=== PATIENT | female | born 1995 | race Caucasian/White ===

== ENCOUNTER 2022-12-11 13:29 | Emergency (ER) | payer MEDICAID, SELFPAY ==
--- NOTE | ~2022-12-11 | XR_ITS ---
EXAM: XR knee RT min 4V DATE: 12/11/2022 13:54 HISTORY: POSTERIOR PAIN AND SWELLING . COMPARISON: None available. FINDINGS: Subjectively decreased mineralization. No fracture or dislocation. No lytic or blastic les ion. Joint spaces are maintained. No erosion or periosteal change. Soft tissues within normal limits. IMPRESSION: Osteopenia. Consider referral for bone density scanning. No acute osseous finding in the right knee. Reviewed, dictated and finalized at location [facility]. IMPRESSION: Osteopenia. Consider referral for bone density scanning. No acute o sseous finding in the right knee.
--- NOTE | ~2022-12-11 | US_ITS ---
EXAMINATION: US venous doppler LE RT DATE: 12/11/2022 15:17 INDICATION: Right lower limb pain. TECHNIQUE: Grayscale ultrasound images without and with compression and Doppler ultrasound images of the right lower extremity veins were obtained. COMPARISON: None. FINDINGS: The visualized portions of right common femoral vein, profunda (deep) femoral vein, femoral vein, pop liteal vein, peroneal veins, posterior tibial veins, and greater saphenous vein outflow are patent. IMPRESSION: 1. No deep venous thrombosis. Reviewed, dictated and finalized at location [facility].
[2022-12-11 13:32] VITALS: BP 112/68; PULSE 98; RESP 16; TEMP 37.2; O2SAT 100
[2022-12-11] MEDS: ACETAMINOPHEN 500 MG TABLET 1000 MG PO (14:47)
--- NOTE | 2022-12-11 15:16 | ED.LOWEXIN ---
HPI - Extremity Injury (Lower) General Chief Complaint: Extremity Injury, Lower Stated Complaint: right knee pain Time Seen by Provider: 12/11/22 13:36 Source: patient Mode of arrival: ambulatory Limitations: no limitations History of Present Illness HPI Narrative: Patient is a 27-year-old female who presents to the ED with report of right knee pain. Patient reports she injured her knee 8 to 9 months ago after a fall and twisting injury. She was evaluated for this in her hometown in [place]. She is currently here visiting. She reports having increased pain over the last couple of days. States pain is mostly inferior and to her posterior knee. She has been taking Tylenol and icing without much relief. Denies any further injury. Denies numbness or tingling. Denies any fevers. Patient does have history of right foot drop and wears a leg brace. Related Data Allergies Allergy/AdvReac Type Severity Reaction Status Date / Time No Known Allergies Allergy Verified 12/11/22 14:07 Review of Systems Review of Systems: CONSTITUTIONAL: Denies fever, chills, or sweats. CARDIOVASCULAR: Denies chest pain. RESPIRATORY: Denies dyspnea. MUSCULOSKELETAL: See HPI. NEUROLOGIC: Denies tingling, numbness, or weakness. All systems reviewed & are unremarkable except as noted in HPI and below PMFSH Surgical History Surgical History (Updated 12/11/22 @ 19:23 by Fely Lantigua PA-C) History of brain surgery benign tumor Exam Narrative: GENERAL: Well appearing, well-nourished, non-toxic, in no acute distress. HEAD: Normocephalic, atraumatic. NECK: Supple. No adenopathy, no masses. RESPIRATORY: Airway patent, respirations nonlabored. Clear to auscultation bilaterally, no rales, rhonchi, wheezing. CARDIOVASCULAR: Regular rate and rhythm without murmurs, rubs, or gallops. Pedal pulses 2+ and equal bilaterally. MUSCULOSKELETAL: Moves all extremities. No gross deformities. Essentially full range of motion of right knee. Mild limitation in flexion due to pain. Full extension. Mild tenderness along inferior joint space of right anterior knee. Tenderness to palpation throughout posterior popliteal region. No palpable Messer's cyst. SKIN: Warm, dry, normal color. No rashes. NEURO: A&O X3. Speech clear. Cranial nerves II-XII grossly intact. Steady gait. No ataxic movements. PSYCHIATRIC: Appropriate mood and affect. Normal interaction. Course Vital Signs Vital signs: Vital Signs Temperature 98.9 F 12/11/22 13:32 Pulse Rate 98 12/11/22 13:32 Respiratory Rate 16 12/11/22 13:32 Blood Pressure 112/68 12/11/22 13:32 Pulse Oximetry 100 12/11/22 13:32 Temperature 98.9 F 12/11/22 13:32 Pulse Rate 98 12/11/22 13:32 Respiratory Rate 16 12/11/22 13:32 Blood Pressure 112/68 12/11/22 13:32 Pulse Oximetry 100 12/11/22 13:32 MDM - Extremity Injury (Lower) MDM Narrative Medical decision making narrative: Patient's injury is consistent with musculoskeletal etiology. No signs of neurologic or vascular compromise on physical examination. Compartments are soft without signs of compartment syndrome. XR of right knee showing possible osteopenia, no other acute abnormalities. Venous Doppler ultrasound negative. Patient updated on these findings. No recent injury. Will provide patient with Joseph bandage for comfort and support. Patient is felt to be stable for discharge home and further outpatient management and treatment. Advised to continue Tylenol and ibuprofen. Follow-up with orthopedics. Return precautions discussed. Patient agrees w/ plan. D/C in stable condition. Medical Records Attestation: I reviewed the patient's medical records. Imaging Data Attestation: I personally reviewed and interpreted this imaging study as follows: Radiologist's impression: ITS Impressions Knee X-Ray 12/11/22 14:04 IMPRESSION: Osteopenia. Consider referral for bone density scanning. No acute osseous finding
== END 2022-12-11 15:38 | disposition home or self-care (01) ==
PROVIDERS: Emergency Provider Physician Assistant
DX: S86.911A Strain of unspecified muscle(s) and tendon(s) at lower leg level, right leg, initial encounter (principal); M21.371 Foot drop, right foot; M85.88 Other specified disorders of bone density and structure, other site; W19.XXXA Unspecified fall, initial encounter; X50.9XXA Other and unspecified overexertion or strenuous movements or postures, initial encounter
CPT/HCPCS: 73564; 93971; 99284; A9270

== ENCOUNTER 2023-01-18 15:23 | Emergency (ER) | payer SELFPAY ==
[2023-01-18 15:37] VITALS: BP 118/74; PULSE 118; RESP 16; TEMP 37; O2SAT 98
[2023-01-18 15:42] LABS: Glucose Point of Care 203 mg/dl (65-105)
[2023-01-18 16:05] VITALS: O2SAT 94
[2023-01-18 16:06] VITALS: BP 126/80; PULSE 85; RESP 16; O2SAT 97
[2023-01-18] MEDS: ONDANSETRON INJ 4 MG/2 ML VIAL IV PUSH (16:22)
[2023-01-18 16:23] VITALS: O2SAT 99
[2023-01-18] MEDS: SODIUM CHLORIDE 0.9% IV 1,000 ML 999 ML IV CONT (16:28)
[2023-01-18 16:29] LABS: Basophils Absolute Auto 0.1 K/mm3 (0.0-0.1); Basophils Percent Auto 0.9 % (0.2-1.2); Eosinophils Absolute Auto 0.1 K/mm3 (0-0.3); Eosinophils Percent Auto 1.2 % (0-4.4); Hematocrit 46.8 % (37.0-47.0); Hemoglobin 16.3 g/dL (12.0-15.0); Immature Granulocyte Absolute 0.04 K/mm3 (0.00-0.031); Immature Granulocyte Percent A 0.4 % (0-0.5); Lymphocytes Absolute Auto 2.77 K/mm3 (0.9-3.2); Lymphocytes Percent Auto 29.8 % (18.3-44.2); Mean Corpuscular HGB Conc 34.8 g/dl (32-36); Mean Corpuscular Hemoglobin 29.6 pg (26-34); Mean Corpuscular Volume 85.1 fl (80-100); Monocytes Absolute Auto 0.8 K/mm3 (0.1-0.6); Monocytes Percent Auto 8.2 % (2.6-8.5); Neutrophils Absolute Auto 5.5 K/mm3 (1.3-6.7); Neutrophils Percent Auto 59.5 % (45.5-73.1); Platelet Count Result 438 k/mm3 (150-375); Red Cell Distribution Width 12.2 % (11.5-14.5); White Blood Count 9.3 K/mm3 (4.5-10.0)
[2023-01-18 16:38] LABS: Appearance Urine Cloudy (Clear); Bacteria Urine 3+ /hpf; Bilirubin Urine Negative (Negative); Blood Urine Negative (Negative); Color Urine Dark Yellow (Yellow); Glucose Urine UA Trace mg/dL (Negative); Ketones Urine 2+ mg/dL (Negative); Leukocyte Esterase Ur 1+ LEU/UL (Negative); Need Manual Microscopic Reviewed; Nitrate Urine Negative (Negative); Protein Urine 2+ mg/dL (Negative); Specific Grav Ur 1.025 (1.001-1.035); Squamous Epithelial Cell Urine Moderate /hpf (Few); pH Urine 5.5 (5.0-9.0)
[2023-01-18 16:39] LABS: Add Urine Microscopic? YES
[2023-01-18 16:47] LABS: Lactic Acid Reflex 1.1 mmol/L (0.7-2.0)
[2023-01-18 16:47] LABS: Alanine Aminotransferase 18 U/L (6-35); Albumin Level 4.6 g/dL (3.5-5.1); Alkaline Phosphatase 85 U/L (38-126); Anion Gap 12 mmol/L (8-16); Aspartate Amino Transferase 21 U/L (14-36); Bilirubin,Total 0.5 mg/dL (0.2-1.3); Blood Urea Nitrogen 17 mg/dL (7-17); Calcium 9.4 mg/dL (8.4-10.2); Carbon Dioxide 22 mmol/L (22-30); Chloride 103 mmol/L (98-107); Estimated CRCL calculation 129 ml/min; Estimated Glomerular Filt Rate > 60; Glucose 193 mg/dL (65-110); Lipase 29 U/L (23-300); Magnesium 1.7 mg/dL (1.6-2.3); Sodium 137 mmol/L (137-145)
[2023-01-18 17:40] LABS: Glucose Point of Care 156 mg/dl (65-105)
--- NOTE | 2023-01-18 17:42 | ED.ABDPAIN ---
HPI - Abdominal Pain General Chief Complaint: Abdominal Pain Stated Complaint: vomiting, fatigue, nausea Time Seen by Provider: 01/18/23 15:29 Source: patient Mode of arrival: ambulatory Limitations: no limitations History of Present Illness HPI narrative: Patient is a 27-year-old female with a past medical history of type 1 diabetes who presents emergency department today for concerns of being in DKA. Patient states that she has had decreased appetite, nausea, abdominal cramping. She states that she just moved to the area she does not have a primary. She has still been using her insulin. She does not check her blood sugars regularly. Denies any pain with urination. She states that it is a little itchy at time. she has a hx of herpes and has antiviral medication if needed. denies chest pain, shortness of breath, dizziness, diarrhea, flank pain, headache, or any other symptoms. Related Data Allergies Allergy/AdvReac Type Severity Reaction Status Date / Time No Known Allergies Allergy Verified 12/11/22 14:07 Review of Systems Review of Systems: CONSTITUTIONAL: +decreased appetitie. Denies fever, chills, or sweats. EYES: Denies visual changes, redness, or discharge. ENT: Denies rhinorrhea, congestion, sore throat, or otalgia. CARDIOVASCULAR: Denies chest pain, palpitations, or edema. RESPIRATORY: Denies cough or dyspnea. GASTROINTESTINAL: +abdominal cramping, nausea, vomiting. denies diarrhea or constipation. GENITOURINARY: has mild itching with urination. denies hematuria. denies vaginal discharge. SKIN: Denies rash or itching. MUSCULOSKELETAL: Denies back pain, joint pain, or myalgia. NEUROLOGIC: Denies headache, numbness, or weakness. PSYCHIATRIC: Denies anxiety or depression. All systems reviewed & are unremarkable except as noted in HPI and below PMFSH Surgical History Surgical History History of brain surgery benign tumor Exam Narrative: GENERAL: Well-appearing, well-nourished, and in no acute distress. HEAD: Normocephalic, atraumatic. EYES: PERRLA and EOMI. ENT: Nares clear, no rhinorrhea or epistaxis. Mucous membranes moist. NECK: Supple. CHEST: Clear to auscultation. No respiratory distress. HEART: Regular rate and rhythm. No murmur heard. Normal peripheral pulses. ABDOMEN: Soft, nontender, nondistended, normal active bowel sounds. EXTREMITIES: Normal range of motion. No edema. SKIN: Warm, dry, no rash. NEURO: No focal deficits. Alert and oriented x3. CN II-XII grossly intact PSYCH: Normal mood and affect. Course Vital Signs Vital signs: Vital Signs Temperature 98.6 F 01/18/23 15:37 Pulse Rate 118 H 01/18/23 15:37 Respiratory Rate 16 01/18/23 15:37 Blood Pressure 118/74 01/18/23 15:37 Pulse Oximetry 98 01/18/23 15:37 Oxygen Delivery Room Air 01/18/23 15:37 Temperature 98.6 F 01/18/23 15:37 Pulse Rate 85 01/18/23 16:06 Respiratory Rate 16 01/18/23 16:06 Blood Pressure 126/80 01/18/23 16:06 Pulse Oximetry 99 01/18/23 16:23 Oxygen Delivery Room Air 01/18/23 15:37 MDM - Abdominal Pain MDM Narrative Medical decision making narrative: a 27-year-old female who just moved to the area over the summer presents for concerns of being in DKA with type 1 diabetes. She states she has insulin and has been taking it but does not check her sugars. She has had fatigue, decreased appetite, nausea, vomiting abdominal cramping as she describes it. denies chance of . Patient's workup today shows no signs of DKA, lab findings consistent with UTI. Will treat appropriately. She was given IV fluids, Zofran. Patient is nontoxic in appearance. Stable re-evaluation exam just before discharge. Patient in no acute distress. Vitals within normal limits. Discussed return precautions with the patient including all the red flag signs or symptoms of when to return the patient. The patient verbalized under
[2023-01-18] MEDS: KETOROLAC 15 MG/ML VIAL (*BKC) IV PUSH (17:51)
[2023-01-18] MEDS: CEPHALEXIN 500 MG CAPSULE PO (17:52)
== END 2023-01-18 18:02 | disposition home or self-care (01) ==
PROVIDERS: Emergency Provider Nurse Practitioner
DX: N30.00 Acute cystitis without hematuria (principal); E10.9 Type 1 diabetes mellitus without complications; R11.2 Nausea with vomiting, unspecified; Z79.4 Long term (current) use of insulin
CPT/HCPCS: 36415; 80053; 81001; 82948; 83605; 83690; 83735; 85025; 87086; 87088; 87147; 96361; 96374; 96375; 99284; A9270; J1885; J2405; J7030

== ENCOUNTER 2023-04-30 12:21 | Emergency (ER) | payer MEDICAID, SELFPAY ==
[2023-04-30 12:31] VITALS: BP 125/78; PULSE 113; RESP 20; TEMP 36.8; O2SAT 100
== END 2023-04-30 16:20 | disposition left against medical advice (07) ==
LOC: ANHED 16:23
DX: R11.2 Nausea with vomiting, unspecified (principal); Z53.21 Procedure and treatment not carried out due to patient leaving prior to being seen by health care provider
CPT/HCPCS: 99199

== ENCOUNTER 2023-06-09 10:09 | Emergency (ER) | payer OTHER, SELFPAY ==
--- NOTE | ~2023-06-09 | CT_ITS ---
EXAMINATION: CT abdomen pelvis w con DATE: 06/09/2023 14:28 INDICATION: Diffuse abdominal pain. Bloating. TECHNIQUE: Computed tomography (CT) of the abdomen and pelvis was performed with 100 CC Omnipaque 350 intravenous contrast. Automated exposure control and iterative reconstruction technique were employe d. Exam dose: 245.80 mGy-cm total exam DLP. COMPARISON: None. FINDINGS: The lung bases are clear. Normal heart size. No pericardial or pleural effusion. There is an approximately 1 x 1.5 cm hypoattenuating right hepatic lesion with suggestion of some per ipheral puddling contrast material, likely a benign hemangioma. No other hepatic space-occupying mass lesion is evident. Normal splenic size. No pancreatic mass lesion or pancreatic duct dilatation. The gallbladder is present. No gallbladder wall thickening or pericholecystic fluid or fat stranding. No bile duct dilatation. Normal morphology of the adrenal glands. 1.5 cm lower pole left renal cyst. The kidneys are otherwise unremarkable. No urinary tract calculus or hydroureteronephrosis. The urinary bladder appears normal. Approximately 6.4 x 8.2 cm probable uterine fibroid at posterior aspect of uterine fundus. The uterus measures approximately 9 cm height. Normal appendix. No bowel obstruction or intraperitoneal free air is detected. Normal caliber of the abdominal aorta. No intraperitoneal or retroperitoneal or pelvic mass lesion or adenopathy or ascites is noted. Included skeletal structures are unremarkable. IMPRESSION: Approximately 6.4 x 8.2 cm probable uterine fibroid Normal appendix Probable right hepatic 1 x 1.5 cm hemangioma 1.5 cm lower pole left renal cyst Reviewed, dictated and finalized at Location [facility]. Reviewed, dictated and finalized at location B. R [employer]
[2023-06-09 10:33] VITALS: BP 128/91; PULSE 104; RESP 16; TEMP 37; O2SAT 99
[2023-06-09 11:43] LABS: Glucose Point of Care 80 mg/dl (65-105)
[2023-06-09 13:19] LABS: Basophils Absolute Auto 0.1 K/mm3 (0.0-0.1); Basophils Percent Auto 0.6 % (0.2-1.2); Eosinophils Percent Auto 0.2 % (0-4.4); Hemoglobin 13.4 g/dL (12.0-15.0); Immature Granulocyte Absolute 0.04 K/mm3 (0.00-0.031); Immature Granulocyte Percent A 0.4 % (0-0.5); Lymphocytes Absolute Auto 2.25 K/mm3 (0.9-3.2); Lymphocytes Percent Auto 22.5 % (18.3-44.2); Mean Corpuscular HGB Conc 33.5 g/dl (32-36); Mean Corpuscular Hemoglobin 30.6 pg (26-34); Mean Corpuscular Volume 91.3 fl (80-100); Mean Platelet Volume 9.5 fl (7.4-10.4); Monocytes Absolute Auto 0.6 K/mm3 (0.1-0.6); Monocytes Percent Auto 6.2 % (2.6-8.5); Neutrophils Percent Auto 70.1 % (45.5-73.1); Platelet Count Result 425 k/mm3 (150-375); Red Blood Count 4.38 M/mm3 (4.2-5.4); Red Cell Distribution Width 12.6 % (11.5-14.5)
[2023-06-09 13:22] LABS: Appearance Urine Clear (Clear); Bacteria Urine None Seen /hpf; Bilirubin Urine Negative (Negative); Blood Urine Negative (Negative); Color Urine Yellow (Yellow); Glucose Urine UA Negative (Negative); Ketones Urine Negative (Negative); Leukocyte Esterase Ur Trace LEU/UL (Negative); Nitrate Urine Negative (Negative); Non Pathogenic Casts 0-2; Protein Urine Negative (Negative); RBC Urine 0-2 /hpf (0-2); Specific Grav Ur 1.007 (1.001-1.035); Squamous Epithelial Cell Urine Few /hpf (Few); Urobilinogen Urine 0.2 mg/dL (<2.0)
[2023-06-09] MEDS: MORPHINE SULFATE (*CRX) 4 MG/ML INJ IV PUSH (13:29)
[2023-06-09] MEDS: SODIUM CHLORIDE 0.9% IV 1,000 ML 150 ML IV CONT (13:30)
[2023-06-09] MEDS: ONDANSETRON INJ 4 MG/2 ML VIAL IV PUSH (13:30)
[2023-06-09 13:36] LABS: Alanine Aminotransferase 20 U/L (6-35); Albumin Level 4.2 g/dL (3.5-5.1); Alkaline Phosphatase 81 U/L (38-126); Amphetamine Screen Urine Negative (Negative); Anion Gap 8 mmol/L (8-16); Aspartate Amino Transferase 24 U/L (14-36); Barbiturate Screen Urine Negative (Negative); Benzodiazepines Screen Urine Negative (Negative); Bilirubin,Total 0.4 mg/dL (0.2-1.3); Blood Urea Nitrogen 9 mg/dL (7-17); Calcium 9.8 mg/dL (8.4-10.2); Cannabinoid Screen Urine Positive (Negative); Carbon Dioxide 24 mmol/L (22-30); Chloride 106 mmol/L (98-107); Cocaine Screen Urine Negative (Negative); Estimated Glomerular Filt Rate > 60; Glucose 116 mg/dL (65-110); Lipase 31 U/L (23-300); Methadone Screen Urine Negative (Negative); Opiate Screen Urine Negative (Negative); Phencyclidine Screen Urine Negative (Negative); Potassium 4.3 mmol/L (3.4-5.0); Sodium 138 mmol/L (137-145)
[2023-06-09 13:58] LABS: Add Urine Microscopic? YES
[2023-06-09 14:11] LABS: Pregnancy On Board Control Positive; Urine Pregnancy Test Negative
[2023-06-09 14:43] LABS: Glucose Point of Care 48 mg/dl (65-105)
[2023-06-09] MEDS: DEXTROSE 10% 500 ML 10 ML IV CONT (14:53)
[2023-06-09 14:59] LABS: Beta HCG Quantitative < 2.39 mIU/ML
[2023-06-09 15:01] VITALS: BP 123/73; O2SAT 100
--- NOTE | 2023-06-09 15:55 | ED.ABDPAIN ---
HPI - Abdominal Pain General Chief Complaint: Abdominal Pain Stated Complaint: ABD PAIN HX OF FIBROID Time Seen by Provider: 06/09/23 12:27 Source: patient Mode of arrival: ambulatory Limitations: no limitations History of Present Illness HPI narrative: 27-year-old with a history of fibroid uterus presents to the ER with a complaint of abdominal pain which has been ongoing for several months occluded however for past 1 week she states that she has been having increasing pain, associated with bloating, nausea and vomiting. Patient states that she is scheduled for MRI end of this month. Her OBGYN is at [facility] MD elicited complaint: abdominal pain Pertinent past history: other (Fibroid ) Onset (ago): month(s) Pain Consistency: constant Location: diffuse Severity: moderate Quality: aching Radiation: none Migration to: no migration Exacerbating factors: eating Relieving factors: nothing Associated symptoms: nausea and vomiting Related Data Allergies Allergy/AdvReac Type Severity Reaction Status Date / Time No Known Allergies Allergy Verified 12/11/22 14:07 Review of Systems Review of Systems: All systems reviewed & are unremarkable except as noted in HPI and below Constitutional: Constitutional: Reports no additional constitutional complaints Eyes: Eyes: Reports no additional eye complaints ENT: Reports system reviewed and no additional complaints, except as documented Cardiovascular: Cardiovascular: Reports no additional cardiovascular complaints Respiratory: Respiratory: Reports no additional respiratory complaints Gastrointestinal: Gastrointestinal: Reports as per HPI Genitourinary: Genitourinary: Reports as per HPI Musculoskeletal: Musculoskeletal: Reports no additional musculoskeletal complaints Neurologic: Reports system reviewed and no additional complaints, except as documented PMFSH Surgical History Surgical History History of brain surgery benign tumor Exam Narrative: GENERAL: Well-appearing, well-nourished, and in no acute distress. HEAD: Normocephalic, atraumatic. EYES: PERRLA and EOMI. NECK: Supple. CHEST: Clear to auscultation. No respiratory distress. HEART: Regular rate and rhythm. No murmur heard. Normal peripheral pulses. ABDOMEN: Soft, diffuse tenderness nondistended, normal active bowel sounds. EXTREMITIES: Normal range of motion. No edema. SKIN: Warm, dry, no rash. NEURO: No focal deficits. Alert and oriented x3. PSYCH: Normal mood and affect. Course Course Emergency Course: patient was complaining of pain I did give her IV morphine and Zofran for nausea control informed her about her lab work, CT findings we did go over her blood sugars keep dropping started on D10 drip . I recommended her for admission for pain control and blood sugar monitoring breathing patient declined admission she wants a fibroid to be removed. I did discuss with Dr. Knutson, he recommended outpatient follow-up in surgery Vital Signs Vital signs: Vital Signs Temperature 37.0 C 06/09/23 10:33 Pulse Rate 104 H 06/09/23 10:33 Respiratory Rate 16 06/09/23 10:33 Blood Pressure 128/91 H 06/09/23 10:33 Pulse Oximetry 99 06/09/23 10:33 Oxygen Delivery Room Air 06/09/23 10:33 Temperature 37.0 C 06/09/23 10:33 Pulse Rate 104 H 06/09/23 10:33 Respiratory Rate 16 06/09/23 10:33 Blood Pressure 128/91 H 06/09/23 10:33 Pulse Oximetry 99 06/09/23 10:33 Oxygen Delivery Room Air 06/09/23 10:33 MDM - Abdominal Pain Differential Diagnosis Differential diagnosis: Likely abdominal pain, acute appendicitis, constipation and small bowel obstruction Medical Records Attestation: I reviewed the patient's medical records. Lab Data Attestation: I reviewed the patient's lab results. 06/09/23 13:07 06/09/23 13:07 Labs: Lab Results 06/09/23 06/09/23 06/09/23 Range/Units 11:40 13:07 14:34
[2023-06-09 16:01] VITALS: BP 115/65; O2SAT 98
[2023-06-09] MEDS: KETOROLAC 15 MG/ML VIAL (*BKC) IV PUSH (16:07)
[2023-06-09 16:12] LABS: Glucose Point of Care 236 mg/dl (65-105)
[2023-06-09 16:20] VITALS: BP 115/65; PULSE 55; RESP 12; O2SAT 100
== END 2023-06-09 16:21 | disposition home or self-care (01) ==
PROVIDERS: Emergency Provider Family Medicine
DX: D25.9 Leiomyoma of uterus, unspecified (principal); E16.2 Hypoglycemia, unspecified; N28.1 Cyst of kidney, acquired; R93.2 Abnormal findings on diagnostic imaging of liver and biliary tract
CPT/HCPCS: 36415; 74177; 80053; 80307; 81001; 81025; 82948; 83690; 84702; 85025; 87077; 87086; 87186; 96361; 96374; 96375; 99284; J1885; J2270; J2405; J7030; Q9967